=== PATIENT | male | born 1990 | race Two or more races ===

== ENCOUNTER 2022-01-31 18:20 | Emergency (ER) | payer OTHER, SELFPAY ==
--- NOTE | ~2022-01-31 | XR_ITS ---
EXAMINATION: XR HAND, LEFT CLINICAL INFORMATION: Fall, injury COMPARISON: None TECHNIQUE: PA, lateral, and oblique views of the left hand. FINDINGS: The bones and soft tissues are normal. No fracture. Alignment is anatomic. Joint spaces are maintained. No erosions or soft tissue calcifications. XR/XR hand LT 2V IMPRESSION: Normal left hand.
[2022-01-31 18:27] VITALS: BP 120/80; PULSE 92; RESP 18; TEMP 36.7; O2SAT 97; BMI 18.1
--- NOTE | 2022-01-31 19:25 | ED_ITS ---
HPI - Extremity Problem General Chief complaint: Extremity Injury, Upper Stated complaint: Left hand injury Time Seen by Provider: 01/31/22 19:25 Source: patient Mode of arrival: ambulatory Limitations: no limitations History of Present Illness HPI Narrative: Patient is a 31 year old assigned male at with no reported medical history presenting to the emergency department today with left thumb pain. Patient states that he fell and caught himself with his hand, injuring his left thumb. Patient denies hitting his head with the fall or having any loss of consciousness. Patient denies any dizziness, lightheadedness, abdominal pain, nausea, vomiting, fever, chills, blurry vision, double vision, loss of vision, chest pain, difficulty breathing, shortness of breath, back pain, night sweats, pain with urination, increased urinary frequency, increased urinary urgency, blood in his urine or stool, syncope or a near syncopal episode, bowel incontinence, bladder incontinence, bowel retention, bladder retention, or any other complaints at this time. MD Complaint: extremity pain Onset (ago): minute(s) Pain Consistency: constant Location: left and upper extremity (thumb) Severity scale (1-10): 3 Quality: dull Radiation: none Relieving factors: nothing Exacerbating factors: nothing Associated symptoms: denies other symptoms Related Data Allergies Allergy/AdvReac Type Severity Reaction Status Date / Time lactose [LACTOSE] Allergy Unknown DIARRHEA Unverified 12/08/19 16:59 lactose AdvReac Unknown diarrhea Uncoded 08/19/17 00:00 Review of Systems Constitutional: Constitutional: Reports no additional constitutional complaints, Denies chills, Denies fever(s) and Denies night sweats Eyes: Eyes: Reports no additional eye complaints, Denies blurry vision, Denies change in vision, Denies diplopia, Denies eye discharge, Denies loss of vision and Denies eye pain ENT: Denies dizziness Cardiovascular: Cardiovascular: Reports no additional cardiovascular complaints, Denies chest pain, Denies lightheadedness, Denies Loss of Consciousness and Denies dyspnea Respiratory: Respiratory: Reports no additional respiratory complaints and Denies dyspnea Gastrointestinal: Gastrointestinal: Reports no additional gastrointestinal complaints, Denies abdominal pain, Denies melena, Denies hematochezia, Denies change in bowel habits and Denies change in stool character Genitourinary: Genitourinary: Reports no additional male genitourinary complaints, Denies hematuria, Denies oliguria, Denies difficulty urinating, Denies dysuria, Denies urinary frequency, Denies urinary hesitancy, Denies urinary incontinence and Denies urinary urgency Musculoskeletal: Musculoskeletal: Reports no additional musculoskeletal complaints, Denies numbness and Denies tingling Comments: left thumb pain Neurologic: Denies dizziness, Denies loss of vision, Denies numbness and Denies tingling Psychiatric: Psychiatric: Reports no additional psychiatric complaints Endocrine: Endocrine: Reports no additional endocrine complaints Hematologic/Lymphatic: Hematologic/Lymphatic: Reports no additional hematologic/lymphatic complaints Allergic/Immunologic: Allergic/Immunologic: Reports no additional allergic/immunologic complaints PMFSH Past Medical History Attestation statement: The following information was validated with the patient. Source: old records reviewed Social History Social History Advance Directives: No Advance Directives Information Provided: No Physical Exam Vital Signs: Vital Signs: Last Vital Signs Temp 98.5 F 01/31/22 19:45 Pulse 85 01/31/22 19:45 Resp 12 01/31/22 19:45 BP 113/64 01/31/22 19:45 Pulse Ox 97 01/31/22 19:45 O2 Del Method 01/31/22 19:45 BMI result Body Mass Index 18.1 Const: General: cooperative, no acute distress, alert and awake Nutritional Appearance: well nourished Orientation/consciousness: patient oriented x3 Limitations: no limitations HEENT: Head: Yes normal to inspection and Yes atraumatic Ears: hearing grossly normal bilaterally and external ears normal General nose exam: Normal external nose present, no nasal discharge noted and no epistaxis Face and sinus: Yes normal facial exam, No abrasion and No laceration Mouth: Normal oral and palatal mucosa present, no drooling and no muffled voice Eyes: General: appearance normal, both eyes and all related structures Periorbital: periorbital findings normal Eyelids: Yes eyelids normal Conjunctivae: conjunctivae normal Pupils: Equal, round and reactive pupils present EOM: EOMs intact bilaterally Neck: Neck: Yes normal visual inspection, Yes full ROM and Yes no lymphadenopathy Chest: Chest palpation & inspection: normal inspection of the chest Resp: Effort & Inspection: normal respiratory effort and able to speak in complete sentences Auscultation: clear to auscultation bilaterally Cardio: Rate: regular rate Rhythm: regular rhythm GI: Inspection: Yes normal to inspection Neuro: General: patient oriented x3 and moves all extremities Cranial nerves: Yes Equal, round and reactive pupils present Cognition (Neuro): normal cognition Motor exam (neuro): 5/5 motor strength present throughout Sensory Exam: Normal double simultaneous stimulation for sensation Coordination: [id number] test normal Extrem: Other: patient unable to touch tip of left thumb to tip of any other of the left hand fingers General: Yes normal to inspection and Yes capillary refill normal Psych: Appearance: grossly normal Mental Status: mental status grossly normal Affect: normal affect Attitude: cooperative Thought process: Normal thought process present Thought content: Normal thought content present Insight: Good insight present (Psych) MDM - Extremity (Nontraumatic) MDM Narrative Medical decision making narrative: Patient is a 31 year old assigned male at with no reported medical history presenting to the emergency department today with left thumb pain. Patient's physical exam showed the inability of the patient to touch the tip of the left thumb to the tips of all of his other left fingers. Patient's left hand x-ray showed no acute process. Patient's clinical presentation is most consistent with a left ulnar collateral ligament injury. I explained my physical exam findings as well as all test results to the patient. I answered all questions asked by the patient. Patient was placed in a left thumb spica splint, without incident. I stressed the importance of the patient taking his medication as prescribed. I stressed the importance of the patient following up with his primary care provider and an orthopedic provider. I stressed the importance of the patient returning to the emergency department immediately if his symptoms were to worsen or if he were to develop any dizziness, shortness of breath, difficulty breathing, chest pain, blurry vision, loss of vision, nausea, vomiting, abdominal pain, fever, chills, back pain, or any other complaints. Patient verbalized agreement and understanding with this treatment plan and discharge. Medical Records Attestation: I reviewed the patient's medical records. Imaging Data Left hand x-ray: Attestation: I personally reviewed and interpreted this imaging study as follows: My impression: No acute process. Radiologist's impression: EXAMINATION: XR HAND, LEFT CLINICAL INFORMATION: Fall, injury? COMPARISON: None? TECHNIQUE: PA, lateral, and oblique views of the left hand. FINDINGS: The bones and soft tissues are normal. No fracture. Alignment is anatomic. Joint spaces are maintained. No erosions or soft tissue calcifications.? XR/XR hand LT 2V IMPRESSION: Normal left hand. Dictated By: Francisca Lemus MD Signed By: Electronically signed by Francisca Lemus MD 01/31/22 1909 Procedures Orthopedic Splinting/Casting Injury #1: Side: left Upper Extremity Injury Location: finger (thumb) Upper Extremity Immobilizer: thumb spica Discharge Plan Discharge Clinical Impression: Skier's thumb Patient Disposition: Home, Self-Care Instructions: Sprain (ED), Skier's Thumb (ED) Additional Instructions: Follow up with your primary care provider and an orthopedic provider. Return to the emergency department immediately if your symptoms worsen or if you develop any dizziness, shortness of breath, difficulty breathing, chest pain, blurry vision, loss of vision, nausea, vomiting, abdominal pain, fever, chills, back pain, or any other complaints. Referrals: [facility] – [place] [facility] [Provider Group] - None (Call to establish and follow up with an orthopedic provider. ) Megha Yao MD [Primary Care Provider] - Stand Alone Forms: Work/School Release Interventions: ED Discharge Assessment Last Done: 01/31/22 19:49 Discharge Date/Time: 01/31/22 19:50 Print Language: German
[2022-01-31 19:45] VITALS: BP 113/64; PULSE 85; RESP 12; TEMP 36.9; O2SAT 97
== END 2022-01-31 19:50 | disposition home or self-care (01) ==
PROVIDERS: Emergency Provider Student in an Organized Health Care Education/Training Program; PCP Internal Medicine
DX: M79.645 Pain in left finger(s) (principal)
CPT/HCPCS: 73120; 99283

== ENCOUNTER 2023-12-29 19:55 | Emergency (ER) | payer OTHER, SELFPAY ==
--- NOTE | ~2023-12-29 | XR_ITS ---
EXAMINATION: XR CHEST CLINICAL INFORMATION: Cough. Pneumonia. COMPARISON: None available. TECHNIQUE: Frontal view of the chest was obtained. FINDINGS: No significant abnormality is noted involving the heart, lungs, mediastinum, bony thorax or soft tissues. XR/XR chest 1V IMPRESSION: Unremarkable examination. Electronically signed by: Yoko Mcrae MD 12/29/2023 10:28 PM EDT
[2023-12-29 20:02] VITALS: BP 127/64; PULSE 76; RESP 18; TEMP 36.6; O2SAT 98; BMI 17.4
--- NOTE | 2023-12-29 20:43 | ED_ITS ---
HPI - General Adult General Chief complaint: Upper Respiratory Symptoms Stated complaint: URI Time Seen by Provider: 12/29/23 21:41 Source: patient Mode of arrival: ambulatory Limitations: no limitations History of Present Illness ED Provider: Dr. Cristin Zaldivar HPI narrative: Patient comes to the emergency room complaining of sore throat and runny nose for 1 week. Patient states that his brother has similar symptoms. Patient complaining of subjective fever and chills. Patient also reports coughing patient states he has history of asthma but has not had any exacerbations. Related Data Previous Rx's ?Medication ?Instructions ?Recorded Ventolin HFA 90 mcg/actuation 2 puff inhalation Q6H PRN 06/23/22 aerosol inhaler (albuterol sulfate) shortness of breath or wheezing 30 days #8 grams amoxicillin 500 mg-potassium 1 tab PO TID 10 days #30 tabs 12/29/23 clavulanate 125 mg tablet (Augmentin) ibuprofen 600 mg tablet 600 mg PO TID PRN fever or pain 12/29/23 #20 tabs Allergies Allergy/AdvReac Type Severity Reaction Status Date / Time lactose [LACTOSE] Allergy Unknown DIARRHEA Verified 12/29/23 20:05 lactose AdvReac Unknown diarrhea Uncoded 03/25/22 14:49 Review of Systems Review of Systems: Constitutional : No Weight loss, complaining of subjective fever and chills, No Night Sweats, No Fatigue, No Malaise ENT/Mouth : No Hearing loss, No Ear Pain, No Nasal Congestion, No Sinus Pain, No Hoarseness, complaining of sore throat, complaining of Rhinorrhea, No Swallowing Difficulty Eyes: No Eye Pain, No Swelling, No Redness, No Foreign Body, No Discharge, No Vision Changes Cardiovascular : No Chest Pain, No SOB, No Dyspnea on Exertion, No Orthopnea, No Edema, No Palpitations Respiratory : No Cough, No Sputum, No Wheezing, No Smoke Exposure, No Dyspnea Gastrointestinal : No Nausea, No Vomiting, No Diarrhea, No Constipation, No abdominal Pain, No Hematochezia, No Melena Genitourinary : no irregular bleeding, No Dysuria, No Urinary Frequency, No Hematuria, No Urinary Incontinence, No Urgency, No Flank Pain, No Urinary Flow Changes, No Hesitancy Musculoskeletal : No joint pain, No Myalgias, No Joint Swelling Skin : No Skin Lesions, No rash Neuro : No Weakness, No Numbness, No Paresthesias, No Loss of Consciousness, No Dizziness, No Headache Psych : No Anxiety/Panic, No Depression, No SI/HI/AH/VH, No Social Issues, Heme/Lymph: No Bruising, No Bleeding,No Lymphadenopathy Endocrine : No Polyuria, No Polydipsia, No Temperature Intolerance [facility] Past Medical History Surgical History No pertinent past surgical history Family History Family History (Updated 03/25/22 @ 14:52 by Megha Gambino MD) Mother Cancer Hypercholesteremia Hypertension Arthritis Mental health disorder Arrhythmia Father No problems noted. Social History Social History Housing: Apartment Alcohol intake: never Patient Tobacco Use Status: Never used Tobacco e-Cigarette/Vaping Use: Never Used Second Hand Smoke Exposure: No Advance Directives: No Advance Directives Information Provided: No Do you have a plan to hurt others: No Plan service: No Current occupational status: employed Current occupational exposures/hazards: No Cognitive needs: No Hearing needs: No Vision needs: Yes Physical Exam ED Vital Signs: Vital Signs - 24 hr 12/29/23 20:02 12/29/23 22:14 Temperature 97.8 F 97.8 F Pulse Rate 76 76 Respiratory Rate 18 18 Blood Pressure 127/64 127/64 Pulse Oximetry 98 98 Oxygen Delivery Method Room Air Room Air BMI result Body Mass Index 17.4 Const Other: Appearance: Alert. Oriented X3. No acute distress. Eyes: Pupils equal, round and reactive to light. ENT: Pharynx is mildly erythematous, no obvious abscesses visualized, no vesicles Neck: Normal inspection. Neck supple. No lymph nodes noted. No crepitus CVS: Normal heart rate and rhythm. Pulses normal. Normal S1 and S2 Respiratory: No respiratory distress. Breath sounds normal. No Wheezing. No rales Abdomen: Soft and nontender. No rigidity. No distention. Skin: Skin warm and dry. Normal skin color. Normal skin turgor. Extremities: No lower extremity edema. No Lacerations. No Rash Neuro: Oriented X 3. No motor deficit. No sensory deficit. Moving all extrem ities. No slurred speech. CN 2 through 12 grossly intact Psych: calm, cooperative, normal affect Course Course Course Narrative: RME: done by DAMON Corbett. 33-year-old male presents to ED for URI symptoms nasal congestion, coughing, and sore throat. Patient states subjective fever and chills. Coughing 1 week. SARs strep ordered. Lungs clear Medical Decision Making Medical Decision Making MDM Narrative: My interpretation of labs: Patient tested positive for strep. -my interpretation of chest x-ray: No obvious infiltrates. Differential Diagnosis Differential Diagnoses: The differential diagnosis associated with the presentation includes (Pneumonia, strep pharyngitis, COVID, RSV, influenza, viral URI) Lab Data MDM Lab Attestation statement: I reviewed the patient's lab results. Labs: Lab Results 12/29/23 Range/Units 20:33 Influenza Type A (PCR) NEGATIVE (Negative) Influenza Type B (PCR) NEGATIVE (Negative) RSV RNA Qual (PCR) NEGATIVE (Negative) SARS-CoV-2 RNA (RT-PCR) NEGATIVE (Negative) S. pyogenes GrpA ANKIT Positive A (Negative) Discharge Plan Discharge Clinical Impression: Acute streptococcal pharyngitis Patient Disposition: Home, Self-Care Instructions: Strep Throat (ED) Additional Instructions: Make sure that in 5 days you change your toothbrush to reach avoid reinfected yourself. Please follow-up with your primary care physician tomorrow. If you have any worsening or new symptoms, please return to the emergency room or call 911 Prescriptions: New amoxicillin-pot clavulanate [Augmentin] 500-125 mg tablet 1 tab PO TID 10 Days Qty: 30 0RF ibuprofen 600 mg tablet 600 mg PO TID PRN (Reason: fever or pain) Qty: 20 0RF No Action albuterol sulfate [Ventolin HFA] 90 mcg/actuation HFA aerosol inhaler 2 puff inhalation Q6H PRN (Reason: shortness of breath or wheezing) 30 Days Qty: 8 1RF Interventions: ED Discharge Assessment Last Done: 12/29/23 22:14 Discharge Date/Time: 12/29/23 22:14 Print Language: Greenlandic
[2023-12-29 20:45] LABS: IDNOW Serial# 152EDE1D; Strep A Nucleic Acid Positive (Negative)
[2023-12-29 21:17] LABS: Influenza A PCR NEGATIVE (Negative); Influenza B PCR NEGATIVE (Negative); Resp Syncy Virus RNA Qual PCR NEGATIVE (Negative); SARS COV2 PCR INHOUSE NEGATIVE (Negative)
[2023-12-29 22:14] VITALS: BP 127/64; PULSE 76; RESP 18; TEMP 36.6; O2SAT 98
== END 2023-12-29 22:14 | disposition home or self-care (01) ==
PROVIDERS: Emergency Provider Emergency Medicine; PCP Internal Medicine
DX: J02.0 Streptococcal pharyngitis (principal); R05.9 Cough, unspecified; Z03.818 Encounter for observation for suspected exposure to other biological agents ruled out
CPT/HCPCS: 0241U; 71045; 87651; 99282; 99283

== ENCOUNTER 2024-04-14 18:39 | Emergency (ER) | payer SELFPAY ==
[2024-04-14 18:57] VITALS: BP 121/78; PULSE 76; RESP 16; TEMP 36.9; O2SAT 100; BMI 18.3
--- NOTE | 2024-04-14 18:59 | ED.GENADULT ---
HPI - General Adult General Chief complaint: General Medical Stated complaint: sore throat for 3 days Time Seen by Provider: 04/14/24 19:38 Source: patient, RN notes reviewed and old records reviewed Mode of arrival: ambulatory Limitations: no limitations History of Present Illness ED Provider: Marya ROSE narrative: 33-year-old male presents for evaluation of a sore throat. He reports his symptoms started 3 days ago. He denies associated symptoms including fevers, chills, cough, shortness of breath He is able to swallow without any difficulty Denies any sick contacts Related Data Previous Rx's ?Medication ?Instructions ?Recorded Ventolin HFA 90 mcg/actuation 2 puff inhalation Q6H PRN 06/23/22 aerosol inhaler (albuterol sulfate) shortness of breath or wheezing 30 days #8 grams amoxicillin 500 mg-potassium 1 tab PO TID 10 days #30 tabs 12/29/23 clavulanate 125 mg tablet (Augmentin) ibuprofen 600 mg tablet 600 mg PO TID PRN fever or pain 12/29/23 #20 tabs Allergies Allergy/AdvReac Type Severity Reaction Status Date / Time lactose [LACTOSE] Allergy Unknown DIARRHEA Verified 04/14/24 19:01 lactose AdvReac Unknown diarrhea Uncoded 03/25/22 14:49 Review of Systems Constitutional: Constitutional: Denies body ache(s), Denies chills, Denies fever(s) and Denies headache(s) ENT: Denies headache(s) and Reports sore throat Cardiovascular: Cardiovascular: Denies chest pain and Denies dyspnea Respiratory: Respiratory: Denies cough and Denies dyspnea Neurologic: Denies headache(s) [facility] Past Medical History Surgical History No pertinent past surgical history Family History Family History (Updated 03/25/22 @ 14:52 by Megha Gambino MD) Mother Cancer Hypercholesteremia Hypertension Arthritis Mental health disorder Arrhythmia Father No problems noted. Social History Social History Housing: Apartment Alcohol intake: never Patient Tobacco Use Status: Never used Tobacco e-Cigarette/Vaping Use: Never Used Second Hand Smoke Exposure: No Advance Directives: No Advance Directives Information Provided: No Do you have a plan to hurt others: No Plan service: No Current occupational status: employed Current occupational exposures/hazards: No Cognitive needs: No Hearing needs: No Vision needs: Yes Physical Exam ED Vital Signs: Vital Signs - 24 hr 04/14/24 18:57 Temperature 98.5 F Pulse Rate 76 Respiratory Rate 16 Blood Pressure 121/78 Pulse Oximetry 100 Oxygen Delivery Method Room Air BMI result Body Mass Index 18.3 Const General: healthy appearing, comfortable, no acute distress, alert and awake Nutritional Appearance: well nourished Orientation/consciousness: patient oriented x3 HENMT Other: Mildly erythematous oropharynx without exudates or fullness. Head: Yes normocephalic and Yes atraumatic Eyes Eyelids: Yes eyelids normal Conjunctivae: conjunctivae normal Sclerae: sclerae normal Corneas: corneas normal Pupils: Equal, round and reactive pupils present EOM: EOMs intact bilaterally Neck Neck: Yes full ROM Resp Effort & Inspection: normal respiratory effort, able to speak in complete sentences and not labored Skin General skin exam: elasticity normal Neuro General: patient oriented x3 Cranial nerves: Yes Equal, round and reactive pupils present and Yes Bilaterally intact EOM present Cognition (Neuro): normal cognition Extrem Other: Moving all extremities well without any obvious deformities Course Course Course Narrative: RME, this is a rapid medical exam performed by Benny Malhotra please refer to primary provider for complete H&P- 33-year-old male presents for evaluation of a sore throat for the last 3 days. Denies any associated complaints including cough, fevers, chills. Plan for viral swabs and strep testing. Medical Decision Making Medical Decision Making MDM Narrative: 33-year-old male who was well-appearing presents for evaluation of a sore throat. Clinically there is no evidence of abscess. He tested negative for strep pharyngitis, influenza and COVID-19. Still likely viral etiology was symptoms, discuss this with the patient and we will treat symptomatically only. Differential Diagnosis Differential Diagnoses: The differential diagnosis associated with the presentation includes Pharyngitis Upper respiratory infection Strep pharyngitis Influenza COVID-19 Lab Data Labs: Lab Results 04/14/24 Range/Units 19:04 COVID-19 (ELIJAH) Negative (Negative) COVID-19 Clin Com See Note Influenza Type A (ANKIT) Negative (Negative) Influenza Type B (ANKIT) Negative (Negative) Influenza A & B Note See Note S. pyogenes GrpA ANKIT Negative (Negative) Discharge Plan Discharge Clinical Impression: Pharyngitis Patient Disposition: Home, Self-Care Instructions: Pharyngitis (ED) Additional Instructions: You tested negative for strep pharyngitis, influenza, and COVID-19. You likely have a virus causing your symptoms. Use ibuprofen and Tylenol for your pain. You may also use saltwater gargles Follow-up with your primary doctor, return for new or worsening symptoms Prescriptions: No Action albuterol sulfate [Ventolin HFA] 90 mcg/actuation HFA aerosol inhaler 2 puff inhalation Q6H PRN (Reason: shortness of breath or wheezing) 30 Days Qty: 8 1RF amoxicillin-pot clavulanate [Augmentin] 500-125 mg tablet 1 tab PO TID 10 Days Qty: 30 0RF ibuprofen 600 mg tablet 600 mg PO TID PRN (Reason: fever or pain) Qty: 20 0RF Interventions: ED Discharge Assessment Last Done: 04/14/24 19:38 Print Language: Montserratian
[2024-04-14 19:24] LABS: COVID-19 Test Negative (Negative); IDNOW Serial# 08D9AD1C; IDNOW Serial# 58CA691E; Strep A Nucleic Acid Negative (Negative)
[2024-04-14 19:28] LABS: IDNOW Serial# 55D5AD1C; Influenza A Negative (Negative); Influenza B2 Negative (Negative)
[2024-04-14 19:38] VITALS: BP 121/78; PULSE 76; RESP 16; TEMP 36.9; O2SAT 100
== END 2024-04-14 19:38 | disposition home or self-care (01) ==
PROVIDERS: Physician Assistant; Emergency Provider Emergency Medicine Emergency Medical Services; PCP Internal Medicine
DX: J02.9 Acute pharyngitis, unspecified (principal); Z03.818 Encounter for observation for suspected exposure to other biological agents ruled out
CPT/HCPCS: 87502; 87635; 87651; 99283; 99284